=== PATIENT | female | born 1955 | race Hispanic/Latino ===

== ENCOUNTER → 2017-09-13 | Emergency (ER) | payer SELFPAY ==
[~2017-09-13] VITALS: Ht 165.1 cm; Wt 72.6 kg
[~2017-09-13] MED LIST: DICLOFENAC SOD100 G1 TOP; GLIPIZIDE ER5 MG PO; LOSARTAN POTAS100 MG PO; MELOXICAM7.5 MG PO; METFORMIN HCL500 MG PO
--- OUTSIDE RECORDS SUMMARY | ~2017-09-13 | XMS | Clinical Summary ---
Demographics + + + | Address | [address] | | | [place] [address] | + + + | Home Phone | | + + + | Preferred Language | Unknown | + + + | Marital Status | | + + + | Restorationism Affiliation | Unknown | + + + | Race | White | + + + | Ethnic Group | or | + + + Author + + + | Organization | Unknown | + + + | Address | Unknown | + + + | Phone | Unavailable | + + + Care Team Providers + +------+ + | Care Riveter Automobile Brakes Name | Role | Phone | + +------+ + PP | Unavailable | + +------+ + Source Comments HEIDI is fully live on both [facility] and [facility] & [facility] Allergies Not on File Current Medications Not on file Active Problems Not on file Social History + +-------+ +--------+------+ | Tobacco Use | Types | Packs/Day | Years | Date | | | | | Used | | + +-------+ +--------+------+ | Never Assessed | | | | | + +-------+ +--------+------+ + + + | Sex Assigned at | Date Recorded | | | | + + + | Not on file | | + + + Plan of Treatment + + + + + | Health Maintenance | Due Date | Last Done | Comments | + + + + + | INFLUENZA VACCINE | | | | | (FLU SHOT) | 7 | | | + + + + + Results Not on filefrom Last 3 Months"
--- OUTSIDE RECORDS SUMMARY | ~2017-09-13 | XMS | Clinical Summary ---
Demographics + + + | Address | [address] | | | [place] [address] | + + + | Home Phone | | + + + | Preferred Language | Unknown | + + + | Marital Status | | + + + | Mandaeism Affiliation | Unknown | + + + | Race | White | + + + | Ethnic Group | or | + + + Author + + + | Organization | Unknown | + + + | Address | Unknown | + + + | Phone | Unavailable | + + + Care Team Providers + +------+ + | Care Application Support Analyst Name | Role | Phone | + +------+ + PP | Unavailable | + +------+ + Source Comments HEIDI is fully live on both [facility] and [facility]Patient.[facility] Allergies Not on File Current [...]
== END ==
LOC: ED 12:54
DX: M79.89 Other specified soft tissue disorders (principal); M79.645 Pain in left finger(s); Z98.890 Other specified postprocedural states